=== PATIENT | female | born 1995 | race Caucasian/White ===

== ENCOUNTER 2016-07-21 14:01 | Emergency (ER) | payer SELFPAY ==
[2016-07-21] MEDS ORDERED: OPTIRAY 350 100 ML VIAL HMH IV ONE (14:02)
[2016-07-21] MEDS ORDERED: KETOROLAC 30 MG/ML VIAL ONE (16:45)
[2016-07-21] MEDS ORDERED: ONDANSETRON 4 MG VIAL ONE (18:31)
[2016-07-21] MEDS ORDERED: SODIUM CHLORIDE 0.9% 100 ML IV ONE (18:31)
[2016-07-21] MEDS ORDERED: MORPHINE 4 MG/ML SYR ONE (18:31)
[2016-07-21] MEDS ORDERED: CEFTRIAXONE 1 GM VIAL ONE (18:31)
== END 2016-07-21 19:41 | disposition home or self-care (01) ==
LOC: ER 14:01
DX: R10.32 Left lower quadrant pain (principal); N30.00 Acute cystitis without hematuria; M51.26 Other intervertebral disc displacement, lumbar region
CPT/HCPCS: 36415; 74177; 80053; 81001; 83690; 84703; 85025; 87077; 87088; 87186; 87491; 87591; 87800; 96365; 96375